=== PATIENT | female | born 1990 | race Caucasian/White ===

== ENCOUNTER 2018-02-14 11:39 | Emergency (ER) | payer BC, MEDICAID, OTHER ==
[~2018-02-14] VITALS: Ht 172.7 cm; Wt 120.0 kg
[~2018-02-14 11:39] MED LIST: CYCL-1 PO; CYCL-394 PO; DICL75TA5 PO; NO HOME MEDS
[2018-02-14 12:28] LABS: BASOPHILS # (AUTO) 0.1 X10'3 (0-0.2); EOSINOPHILS # (AUTO) 0.1 X10'3 (0-0.9); EOSINOPHILS % (AUTO) 1.1 % (0-6); HEMATOCRIT 35.3 % (35.0-45.0); HEMOGLOBIN 11.9 g/dl (12.0-16.0); LYMPHOCYTES # (AUTO) 2.6 X10'3 (1.1-4.8); LYMPHOCYTES % (AUTO) 28.1 % (21-51); MEAN CORPUSCULAR HEMOGLOBIN 26.8 PG (27.0-31.0); MEAN CORPUSCULAR HGB CONC 33.8 % (33.0-36.5); MEAN CORPUSCULAR VOLUME 79.3 FL (78-98); MEAN PLATELET VOLUME 8.8 FL (7.4-10.4); MONOCYTES # (AUTO) 0.6 X10'3 (0-0.9); MONOCYTES % (AUTO) 6.8 % (2-12); NEUTROPHILS # (AUTO) 5.9 X10'3 (1.8-7.7); PLATELET COUNT 289 X10'3 (140-440); RED BLOOD COUNT 4.46 X10'6 (4.20-5.60); RED CELL DISTRIBUTION WIDTH 15.8 % (11.5-14.5); WHITE BLOOD COUNT 9.4 X10'3 (4.5-11.0)
[2018-02-14 12:32] LABS: URINE HCG NEGATIVE (NEG)
[2018-02-14 12:42] LABS: ALANINE AMINOTRANSFERASE 24 U/L (12-78); ALBUMIN 3.5 G/DL (3.4-5.0); ALBUMIN/GLOBULIN RATIO 0.8 (1.1-1.5); ALKALINE PHOSPHATASE 78 IU/L (46-116); ANION GAP 8 (8-16); ASPARTATE AMINO TRANSFERASE 18 U/L (10-37); BILIRUBIN,TOTAL 0.2 MG/DL (0.1-1.0); BLOOD UREA NITROGEN 8 MG/DL (7-18); BUN/CREATININE RATIO 9.9 (6.6-38.0); CALCIUM 8.3 MG/DL (8.5-10.1); CHLORIDE 103 MMOL/L (99-107); CREATININE 0.81 MG/DL (0.40-0.90); GLUCOSE 84 MG/DL (70-104); POTASSIUM 3.3 MMOL/L (3.5-5.1); SODIUM 139 MMOL/L (135-145); TOTAL CARBON DIOXIDE 28.1 MMOL/L (24-32); TOTAL PROTEIN 7.7 G/DL (6.4-8.2); eGFR 85 ML/MIN
[2018-02-14] MEDS ORDERED: MECL-111 PO (13:34)
[2018-02-14] MEDS ORDERED: PROM25TA14 PO (13:34)
[2018-02-14] MEDS ORDERED: meclizine 12.5mg tablet PO ONE (13:35)
[2018-02-14 15:07] VITALS: BP 136/76
== END 2018-02-14 15:08 | disposition home or self-care (01) ==
LOC: ER 11:39
DX: R42 Dizziness and giddiness (principal); M54.2 Cervicalgia; R51 Headache; F17.200 Nicotine dependence, unspecified, uncomplicated; Z79.899 Other long term (current) drug therapy
CPT/HCPCS: 36415; 70450; 80053; 81025; 85025; 93005; 99285; J8597

== ENCOUNTER 2018-12-22 14:59 | Emergency (ER) | payer BC ==
[~2018-12-22] VITALS: Ht 165.1 cm; Wt 119.0 kg
[~2018-12-22 14:59] MED LIST changes: -CYCL-1 PO; -CYCL-394 PO; -DICL75TA5 PO; +MECL-111 PO; +PROM25TA14 PO
[2018-12-22 15:08] VITALS: BP 156/99
[2018-12-22 15:46] LABS: CLARITY,URINE SLIGHTLY CLOUDY (Clear); COLOR,URINE STRAW (Yellow); GLUCOSE, URINE NEGATIVE (Neg); KETONES,URINE NEGATIVE (Neg); LEUKOCYTE ESTERASE ,URINE MODERATE (Neg); NITRITES, URINE NEGATIVE (Neg); OCCULT BLOOD,URINE LARGE (Neg); PROTEIN,URINE TRACE mg/dl (Neg); UROBILINOGEN,URINE 0.2 E.U/dL (0.2-1.0)
[2018-12-22 15:51] LABS: UA COLLECTION TYPE CLN CATCH MIDSTREAM
[2018-12-22 15:53] LABS: SQUAMOUS EPITHELIAL CELL,UR MODERATE /LPF (FEW)
[2018-12-22 15:56] LABS: TRANSITIONAL EPI CELLS,URINE FEW /HPF
[2018-12-22 15:57] LABS: BACTERIA,URINE 1+ /HPF (Neg)
[2018-12-22] MEDS ORDERED: CEPH-572 PO (16:54)
[2018-12-22] MEDS ORDERED: ibuprofen tablet 400 MG TABLET PO ONE (17:05)
== END 2018-12-22 17:15 | disposition home or self-care (01) ==
LOC: ER 14:59
DX: N10 Acute pyelonephritis (principal); R11.2 Nausea with vomiting, unspecified; Z79.899 Other long term (current) drug therapy
CPT/HCPCS: 81001; 87077; 87088; 87186; 99283

== ENCOUNTER 2019-05-11 08:09 | Emergency (ER) | payer BC ==
[~2019-05-11] VITALS: Ht 172.7 cm; Wt 117.0 kg
[2019-05-11 08:14] VITALS: BP 124/79
[2019-05-11] MEDS ORDERED: acetaminophen 325mg tablet PO ONE (08:55)
[2019-05-11] MEDS ORDERED: ketorolac trometh inj. 60 MG/2 ML VIAL IM ONE (08:55)
[2019-05-11] MEDS ORDERED: ondansetron 4mg rapidly disintigrating tab PO ONE (08:55)
[2019-05-11] MEDS ORDERED: orphenadrine citrate 60mg/2ml inj. IM ONE (08:55)
[2019-05-11 09:19] LABS: CLARITY,URINE CLEAR (Clear); COLOR,URINE YELLOW (Yellow); GLUCOSE, URINE NEGATIVE (Neg); KETONES,URINE NEGATIVE (Neg); LEUKOCYTE ESTERASE ,URINE TRACE (Neg); NITRITES, URINE NEGATIVE (Neg); OCCULT BLOOD,URINE TRACE-INTACT (Neg); PROTEIN,URINE NEGATIVE (Neg); URINE HCG NEGATIVE (NEG); UROBILINOGEN,URINE 0.2 E.U/dL (0.2-1.0)
[2019-05-11 09:21] LABS: UA COLLECTION TYPE CLN CATCH MIDSTREAM
[2019-05-11 09:26] LABS: MUCUS STRANDS FEW /LPF (Neg); SQUAMOUS EPITHELIAL CELL,UR MANY /LPF (FEW)
[2019-05-11 09:28] LABS: BACTERIA,URINE 1+ /HPF (Neg); RBC,URINE 0-2 /HPF (0-2); WBC CLUMPS,URINE FEW /HPF (NEGATIVE); YEAST FEW /HPF (NEGATIVE)
--- NOTE | 2019-05-11 10:06 | NUR ---
Mian cultured obtained and sent to lab
[2019-05-11] MEDS ORDERED: CYCL-1 PO (10:14)
[2019-05-11] MEDS ORDERED: ONDA8TAB6 PO (10:14)
[2019-05-11] MEDS ORDERED: HYDR-3965 PO (10:14)
[2019-05-11] MEDS ORDERED: CEPH-572 PO (10:14)
== END 2019-05-11 10:33 | disposition home or self-care (01) ==
LOC: ER 08:09
DX: N39.0 Urinary tract infection, site not specified (principal); M54.9 Dorsalgia, unspecified; J02.9 Acute pharyngitis, unspecified; G89.29 Other chronic pain; Z79.899 Other long term (current) drug therapy
CPT/HCPCS: 81001; 81025; 87081; 87880; 96372; 99283; J1885; J2360

== ENCOUNTER 2020-09-06 12:29 | Emergency (ER) | payer BC, OTHER ==
[~2020-09-06] VITALS: Ht 172.7 cm; Wt 121.8 kg
[~2020-09-06 12:29] MED LIST changes: +CYCL-1 PO; -MECL-111 PO; +MECL-159 PO; +ONDA8TAB6 PO
[2020-09-06] MEDS ORDERED: ketorolac trometh inj. 60 MG/2 ML VIAL IM ONE (13:10)
[2020-09-06] MEDS ORDERED: IBUP-1986 PO (13:21)
[2020-09-06 13:45] VITALS: BP 148/86
== END 2020-09-06 13:48 | disposition home or self-care (01) ==
LOC: ER 12:30
DX: M54.5 Low back pain (principal); G89.29 Other chronic pain; Z79.899 Other long term (current) drug therapy
CPT/HCPCS: 96372; 99283; J1885

== ENCOUNTER 2021-09-16 06:08 | Emergency (ER) | payer BC, OTHER ==
[~2021-09-16] VITALS: Ht 172.7 cm; Wt 100.0 kg
[~2021-09-16 06:08] MED LIST changes: +IBUP-1986 PO
[2021-09-16 06:38] VITALS: BP 150/95
[2021-09-16] MEDS ORDERED: ketorolac trometh inj. 60 MG/2 ML VIAL IM ONE (07:10)
[2021-09-16] MEDS ORDERED: acetaminophen 325mg tablet PO ONE (07:10)
[2021-09-16 07:11] LABS: COLOR,URINE YELLOW (Yellow); GLUCOSE, URINE NEGATIVE (Neg); KETONES,URINE NEGATIVE (Neg); LEUKOCYTE ESTERASE ,URINE NEGATIVE (Neg); NITRITES, URINE NEGATIVE (Neg); OCCULT BLOOD,URINE MODERATE (Neg); PROTEIN,URINE NEGATIVE (Neg); UROBILINOGEN,URINE 0.2 E.U/dL (0.2-1.0)
[2021-09-16 07:12] LABS: URINE HCG NEGATIVE (NEG)
[2021-09-16 07:17] LABS: CLARITY,URINE SLIGHTLY CLOUDY (Clear); UA COLLECTION TYPE CLN CATCH MIDSTREAM
[2021-09-16 07:18] LABS: BACTERIA,URINE NONE SEEN /HPF (Neg); RBC,URINE 20-50 /HPF (0-2); SQUAMOUS EPITHELIAL CELL,UR FEW /LPF (FEW); WBC,URINE NONE SEEN /HPF (0-4)
[2021-09-16 07:24] LABS: URINE AMPHETAMINE SCREEN NEGATIVE (Neg); URINE BARBITUATE SCREEN NEGATIVE (Neg); URINE BENZODIAZEPINES SCREEN NEGATIVE (Neg); URINE CANNABINOID SCREEN NEGATIVE (Neg); URINE COCAINE SCREEN NEGATIVE (Neg); URINE METHADONE SCREEN NEGATIVE (Neg); URINE OPIATE SCREEN NEGATIVE (Neg); URINE PHENCYCLIDINE SCREEN NEGATIVE (Neg)
== END 2021-09-16 07:26 | disposition home or self-care (01) ==
LOC: ER 06:08
DX: M54.50 Low back pain, unspecified (principal); G89.29 Other chronic pain; R31.9 Hematuria, unspecified; F17.200 Nicotine dependence, unspecified, uncomplicated; Z87.440 Personal history of urinary (tract) infections; Z79.899 Other long term (current) drug therapy
CPT/HCPCS: 80305; 81001; 81025; 96372; 99283; J1885

== ENCOUNTER 2022-02-04 20:21 | Emergency (ER) | payer BC ==
[~2022-02-04] VITALS: Ht 172.7 cm; Wt 127.3 kg
[2022-02-04 20:36] VITALS: BP 119/86
[2022-02-04 21:13] LABS: BASOPHILS # (AUTO) 0.1 X10'3 (0-0.2); BASOPHILS % (AUTO) 0.6 % (0-1); EOSINOPHILS # (AUTO) 0.3 X10'3 (0-0.9); HEMATOCRIT 36.2 % (35.0-45.0); HEMOGLOBIN 11.9 g/dl (12.0-16.0); LYMPHOCYTES % (AUTO) 22.3 % (21-51); MEAN CORPUSCULAR HEMOGLOBIN 26.8 PG (27.0-31.0); MEAN CORPUSCULAR HGB CONC 32.9 g/dL (33.0-36.5); MEAN CORPUSCULAR VOLUME 81.4 FL (78-98); MEAN PLATELET VOLUME 8.6 FL (7.4-10.4); MONOCYTES # (AUTO) 0.6 X10'3 (0-0.9); MONOCYTES % (AUTO) 6.9 % (2-12); NEUTROPHILS # (AUTO) 6.1 X10'3 (1.8-7.7); NEUTROPHILS % (AUTO) 67.2 % (42-75); PLATELET COUNT 299 X10'3 (140-440); RED BLOOD COUNT 4.45 X10'6 (4.20-5.60); RED CELL DISTRIBUTION WIDTH 14.9 % (11.5-14.5)
[2022-02-04 21:16] LABS: CLARITY,URINE SLIGHTLY CLOUDY (Clear); COLOR,URINE YELLOW (Yellow); GLUCOSE, URINE NEGATIVE (Neg); KETONES,URINE NEGATIVE (Neg); LEUKOCYTE ESTERASE ,URINE SMALL (Neg); NITRITES, URINE POSITIVE (Neg); OCCULT BLOOD,URINE LARGE (Neg); PH,URINE 5.5 (4.8-8.0); PROTEIN,URINE 100 mg/dl (Neg); URINE HCG NEGATIVE (NEG); UROBILINOGEN,URINE 0.2 E.U/dL (0.2-1.0)
[2022-02-04 21:22] LABS: UA COLLECTION TYPE CLN CATCH MIDSTREAM
[2022-02-04 21:23] LABS: WBC,URINE TNTC /HPF (0-4)
[2022-02-04 21:24] LABS: BACTERIA,URINE 1+ /HPF (Neg); SQUAMOUS EPITHELIAL CELL,UR FEW /LPF (FEW)
[2022-02-04 21:28] LABS: ALANINE AMINOTRANSFERASE 19 U/L (12-78); ALBUMIN 3.6 G/DL (3.4-5.0); ALBUMIN/GLOBULIN RATIO 0.9 (1.1-1.5); ALKALINE PHOSPHATASE 64 IU/L (46-116); ANION GAP 9 (8-16); ASPARTATE AMINO TRANSFERASE 16 U/L (10-37); BILIRUBIN,TOTAL 0.2 MG/DL (0.1-1.0); BLOOD UREA NITROGEN 10 MG/DL (7-18); BUN/CREATININE RATIO 13.2 (6.6-38.0); CALCIUM 8.7 MG/DL (8.5-10.1); CHLORIDE 103 MMOL/L (99-107); CREATININE 0.76 MG/DL (0.40-0.90); GLUCOSE 107 MG/DL (70-104); LIPASE 76 U/L (73-393); POTASSIUM 3.5 MMOL/L (3.5-5.1); SODIUM 140 MMOL/L (135-145); TOTAL CARBON DIOXIDE 27.6 MMOL/L (24-32); TOTAL PROTEIN 7.6 G/DL (6.4-8.2); eGFR 89 ML/MIN
[2022-02-04] MEDS ORDERED: phenazopyridine 100mg tablet PO ONE (22:35)
[2022-02-04] MEDS ORDERED: ciprofloxacin 250mg tablet PO ONE (22:35)
[2022-02-04] MEDS ORDERED: PHEN-824 PO (22:36)
[2022-02-04] MEDS ORDERED: CIPR-259 PO (22:36)
--- NOTE | 2022-02-04 22:42 | NUR ---
PO MEDS X2 GIVEN
== END 2022-02-04 22:43 | disposition home or self-care (01) ==
LOC: ER 20:22
DX: N12 Tubulo-interstitial nephritis, not specified as acute or chronic (principal); R10.30 Lower abdominal pain, unspecified; G89.29 Other chronic pain; Z87.440 Personal history of urinary (tract) infections; Z79.2 Long term (current) use of antibiotics; Z79.899 Other long term (current) drug therapy
CPT/HCPCS: 36415; 80053; 81001; 81025; 83690; 85025; 87077; 87088; 87186; 99283

== ENCOUNTER 2023-04-27 12:15 | Emergency (ER) | payer BC ==
[~2023-04-27] VITALS: Ht 172.7 cm; Wt 140.0 kg
[~2023-04-27 12:15] MED LIST changes: -MECL-159 PO; +MECL-302 PO; +PHEN-824 PO
[2023-04-27 12:19] VITALS: TEMP 97.8
[2023-04-27 13:02] LABS: BASOPHILS % (AUTO) 0.5 % (0-1); EOSINOPHILS # (AUTO) 0.1 X10'3 (0-0.9); EOSINOPHILS % (AUTO) 0.9 % (0-6); HEMATOCRIT 37.7 % (35.0-45.0); HEMOGLOBIN 12.3 g/dl (12.0-16.0); LYMPHOCYTES # (AUTO) 1.8 X10'3 (1.1-4.8); LYMPHOCYTES % (AUTO) 24.4 % (21-51); MEAN CORPUSCULAR HEMOGLOBIN 26.9 PG (27.0-31.0); MEAN CORPUSCULAR HGB CONC 32.7 g/dL (33.0-36.5); MEAN CORPUSCULAR VOLUME 82.4 FL (78-98); MEAN PLATELET VOLUME 8.7 FL (7.4-10.4); MONOCYTES # (AUTO) 0.5 X10'3 (0-0.9); MONOCYTES % (AUTO) 6.7 % (2-12); NEUTROPHILS # (AUTO) 5.1 X10'3 (1.8-7.7); NEUTROPHILS % (AUTO) 67.5 % (42-75); PLATELET COUNT 311 X10'3 (140-440); RED BLOOD COUNT 4.58 X10'6 (4.20-5.60); RED CELL DISTRIBUTION WIDTH 16.2 % (11.5-14.5); WHITE BLOOD COUNT 7.5 X10'3 (4.5-11.0)
[2023-04-27 13:45] LABS: ALANINE AMINOTRANSFERASE 25 U/L (12-78); ALBUMIN 3.9 G/DL (3.4-5.0); ALKALINE PHOSPHATASE 58 IU/L (46-116); AMYLASE 32 U/L (25-115); ANION GAP 10 (8-16); ASPARTATE AMINO TRANSFERASE 19 U/L (10-37); BILIRUBIN,TOTAL 0.2 MG/DL (0.1-1.0); BLOOD UREA NITROGEN 5 MG/DL (7-18); CALCIUM 9.3 MG/DL (8.5-10.1); CHLORIDE 102 MMOL/L (99-107); CREATININE 0.71 MG/DL (0.40-0.90); GLUCOSE 108 MG/DL (70-104); LIPASE 70 U/L (73-393); POTASSIUM 3.6 MMOL/L (3.5-5.1); SODIUM 138 MMOL/L (135-145); TOTAL CARBON DIOXIDE 26.1 MMOL/L (24-32); eCRCL 115 ML/MIN; eGFR > 90 ML/MIN
[2023-04-27 15:16] LABS: BILIRUBIN,URINE NEGATIVE (Neg); CLARITY,URINE SLIGHTLY CLOUDY (Clear); COLOR,URINE YELLOW (Yellow); GLUCOSE, URINE NEGATIVE (Neg); KETONES,URINE NEGATIVE (Neg); LEUKOCYTE ESTERASE ,URINE NEGATIVE (Neg); NITRITES, URINE NEGATIVE (Neg); OCCULT BLOOD,URINE NEGATIVE (Neg); PROTEIN,URINE NEGATIVE (Neg); URINE HCG POSITIVE (NEG); UROBILINOGEN,URINE 0.2 E.U/dL (0.2-1.0)
[2023-04-27 15:21] LABS: UA COLLECTION TYPE CLN CATCH MIDSTREAM
[2023-04-27 15:23] LABS: BACTERIA,URINE 3+ /HPF (Neg); MUCUS STRANDS MANY /LPF (Neg); RBC,URINE NONE SEEN /HPF (0-2); SQUAMOUS EPITHELIAL CELL,UR MANY /LPF (FEW); WBC,URINE 0-4 /HPF (0-4)
[2023-04-27] MEDS ORDERED: lactulose 20gm/30ml cup PO ONE (17:05)
[2023-04-27 17:36] VITALS: BP 126/75; PULSE 79; RESP 15; O2SAT 99
== END 2023-04-27 17:38 | disposition home or self-care (01) ==
LOC: ER 12:16
DX: O26.891 Other specified pregnancy related conditions, first trimester (principal); K59.00 Constipation, unspecified; R10.9 Unspecified abdominal pain; G89.29 Other chronic pain; Z87.442 Personal history of urinary calculi; Z79.899 Other long term (current) drug therapy; Z3A.01 Less than 8 weeks gestation of pregnancy
CPT/HCPCS: 36415; 76700; 80053; 81001; 81025; 82150; 83690; 85025; 99284